=== PATIENT | female | born 1990 | race Caucasian/White ===

== ENCOUNTER 2017-03-20 18:34 | Emergency (ER) | payer OTHER ==
[2017-03-20 18:35] VITALS: BMI 32.5
[2017-03-20 18:44] VITALS: BP 118/83; PULSE 85; TEMP 98.1; O2SAT 99
--- NOTE | 2017-03-20 19:55 | C.PDOC ---
History Of Present Illness The patient, a 26 y/o female, presents to the ED for evaluation of sore throat which began around 8 days ago. Patient also reports generalized body aches, eye pain, and ear pain. Patient states she occasionally takes Tylenol, which provides her with some relief. She denies fever, chills, cough, and sick contacts. Time Seen by Provider: 03/20/17 19:14 Chief Complaint (Nursing): ENT Problem History Per: Patient History/Exam Limitations: no limitations Onset/Duration Of Symptoms: Days (8) Current Symptoms Are (Timing): Still Present Location Of Pain: Throat Sick Contacts (Context): None Associated Symptoms: Sore Throat. denies: Fever, Chills, Cough Ear Symptoms: Bilateral: Ear Pain Additional History Per: Patient Past Medical History Reviewed: Historical Data, Nursing Documentation, Vital Signs Vital Signs: Last Vital Signs Temp 98.1 F 03/20/17 18:40 Pulse 85 03/20/17 18:40 Resp 20 03/20/17 20:08 BP 118/83 03/20/17 18:40 Pulse Ox 99 03/20/17 20:17 - Medical History PMH: Gall Bladder Disease (EPIGASTRIC PAIN AFTER FOOD), HTN (preeclampsia), Migraine Denies: Chronic Kidney Disease Surgical History: - [facility] Procedures EXTRACTION OF POC, LOW CERVICAL, OPEN APPROACH (09/01/16) Family History: States: Unknown Family Hx - Social History Hx Tobacco Use: No Hx Alcohol Use: No Hx Substance Use: No - Immunization History Hx Tetanus Toxoid Vaccination: No Hx Influenza Vaccination: Yes Hx Pneumococcal Vaccination: No Review Of Systems Except As Marked, All Systems Reviewed And Found Negative. Constitutional: Negative for: Fever, Chills Eyes: Positive for: Pain ENT: Positive for: Ear Pain, Throat Pain Respiratory: Negative for: Cough Physical Exam - Physical Exam Appears: Non-toxic, No Acute Distress Skin: Normal Color, Warm, Dry Head: Atraumatic, Normacephalic Eye(s): bilateral: Normal Inspection, PERRL, EOMI, Other (no conjunctival erythema ) Ear(s): Bilateral: Normal Nose: Normal, No Discharge Oral Mucosa: Moist Throat: Normal, No Erythema, No Exudate Neck: Normal ROM, Supple Lymphatic: Adenopathy (mild, submandibular ) Chest: Symmetrical, No Deformity, No Tenderness Cardiovascular: Rhythm Regular, No Murmur Respiratory: Normal Breath Sounds, No Rales, No Rhonchi, No Wheezing Gastrointestinal/Abdominal: Soft, No Tenderness, No Guarding, No Rebound Back: Normal Inspection, No Vertebral Tenderness, No Paraspinal Tenderness Extremity: Normal ROM, Capillary Refill (less than 2 seconds) Neurological/Psych: Oriented x3, Normal Speech, Normal Cognition Gait: Steady ED Course And Treatment O2 Sat by Pulse Oximetry: 99 (on RA) Pulse Ox Interpretation: Normal Medical Decision Making Medical Decision Makin26 y/o female with sore throat, myalgia and eye discomfort x 8 days, no fevers, normal appearing throat, taking tylenol occasionally Disposition Counseled Patient/Family Regarding: Studies Performed, Diagnosis, Need For Followup - Disposition Referrals: [facility] [Outside] [facility] [Outside] Disposition: HOME/ ROUTINE Disposition Time: 19:53 Condition: STABLE Additional Instructions: Vince Tylenol o ibuprofeno para el dolor; Ambos son seguros en la lactancia materna. Gargel con agua salada caliente varias veces al da. Vayan a la Cl prasad Mdica en pocos young. Vuelva a la miguel ángel de emergencias por cualquier s ntoma peor, Take Tylenol or ibuprofen for pain; both are safe in . Gargel with warm salty water several times a day. FOllow up in Medical clinic in a few days. 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 - Scribe Statement The provider has reviewed the documentation as recorded by the Scribe (Magda Mckeon) All medical record entries made by the Scribe were at my direction and personally dictated by me. I have reviewed the chart and agree that the record accurately reflects my personal performance of the history, physical exam, medical decision making, and the department course for this patient. I have also personally directed, reviewed, and agree with the discharge instructions and disposition.
[2017-03-20 20:09] VITALS: RESP 20
== END 2017-03-20 20:08 | disposition home or self-care (01) ==
LOC: C.ER 18:34
DX: J06.9 Acute upper respiratory infection, unspecified (principal)

== ENCOUNTER 2018-12-22 16:56 | Emergency (ER) | payer SELFPAY ==
[2018-12-22 16:56] VITALS: BMI 32.1
[2018-12-22] MEDS ORDERED: Sodium Chloride 0.9% 1,000 ML IV ONE (17:43)
--- NOTE | 2018-12-22 17:44 | C.PDOC ---
History Of Present Illness 28 y/o female presents to the ED complaining of epigastric abdominal pain associated with nausea that began 5 days ago. She reports pain is intermittent and it feels like a squeezing. Otherwise she denies any vomiting, diarrhea, feve r, or chills. Patient admits to some dysuria. She denies that the pain worsens with food intake, though she has had decreased PO intake due to the nausea. Prior surgical hx includes and cholecystectomy. Time Seen by Provider: 12/22/18 17:18 Chief Complaint (Nursing): Abdominal Pain History Per: Patient History/Exam Limitations: no limitations Onset/Duration Of Symptoms: Days (x 5) Current Symptoms Are (Timing): Still Present Location Of Pain/Discomfort: Epigastric, Suprapubic Associated Symptoms: Nausea, Loss Of Appetite Past Medical History Reviewed: Historical Data, Nursing Documentation, Vital Signs Vital Signs: Last Vital Signs Temp 98 F 12/22/18 17:04 Pulse 93 H 12/22/18 17:04 Resp 18 12/22/18 17:04 BP 135/92 H 12/22/18 17:04 Pulse Ox 100 12/22/18 17:04 - Medical History PMH: Gall Bladder Disease (EPIGASTRIC PAIN AFTER FOOD), HTN (preeclampsia), Migraine Denies: Chronic Kidney Disease Surgical History: Cholecystectomy, - [facility] Procedures EXTRACTION OF POC, LOW CERVICAL, OPEN APPROACH (09/01/16) Family History: States: Unknown Family Hx - Social History Hx Tobacco Use: No Hx Alcohol Use: No Hx Substance Use: No - Immunization History Hx Tetanus Toxoid Vaccination: No Hx Influenza Vaccination: Yes Hx Pneumococcal Vaccination: No Review Of Systems Except As Marked, All Systems Reviewed And Found Negative. Constitutional: Negative for: Fever, Chills Eyes: Negative for: Vision Change Cardiovascular: Negative for: Palpitations Respiratory: Negative for: Shortness of Breath Gastrointestinal: Positive for: Nausea, Abdominal Pain. Negative for: Vomiting, Diarrhea, Constipation, Hematochezia Genitourinary: Positive for: Dysuria. Negative for: Vaginal Discharge, Vaginal Bleeding Musculoskeletal: Negative for: Back Pain Neurological: Negative for: Weakness, Numbness Physical Exam - Physical Exam Appears: Non-toxic, No Acute Distress Skin: Normal Color, Warm, No Rash Head: Atraumatic, Normacephalic Eye(s): bilateral: Normal Inspection, PERRL, EOMI Oral Mucosa: Moist Neck: Normal ROM Chest: Symmetrical Cardiovascular: Rhythm Regular, No Murmur Respiratory: Normal Breath Sounds, No Accessory Muscle Use, Other (Speaking in full sentences) Gastrointestinal/Abdominal: Soft, Tenderness (Epigastric and suprapubic tenderness, negative Houston sign, negative McBurneys point tenderness), No Guarding, No Rebound Back: No CVA Tenderness, No Vertebral Tenderness Extremity: Bilateral: Atraumatic, Normal Color And Temperature, Normal ROM Neurological/Psych: Oriented x3, Normal Speech ED Course And Treatment - Laboratory Results Result Diagrams: 12/22/18 17:41 12/22/18 17:41 O2 Sat by Pulse Oximetry: 100 (RA) Pulse Ox Interpretation: Normal Progress Note: Administered NS IV fluids x 1 bolus and 40 mg IV Protonix. Blood work and UA ordered and reviewed. HCG negative. UA shows +leuks, WBC, and few bacteria. Blood work is grossly normal. On re-evaluation patient is resting comfortably, but reports continued pain. Will give 30 mg IV Toradol for pain and discharge home. Plan is to treat patient for UTI and instruct follow up with PMD. Disposition Counseled Patient/Family Regarding: Studies Performed, Diagnosis, Need For Followup, Rx Given - Disposition Referrals: [facility] [Outside] Ramses Schwartz MD [Staff Provider] - Disposition: HOME/ ROUTINE Disposition Time: 18:45 Condition: STABLE Additional Instructions: FOLLOW UP WITH YOUR DOCTOR/CLINIC IN 1-2 DAYS FOLLOW UP WITH [facility]ER WITHIN 1 WEEK AVOID SPICY OR ACIDIC FOODS USE MEDICATIONS DIRECTED RETURN TO EMERGENCY ROOM IF YOUR SYMPTOMS BECOME WORSE SEGUIR CON KHAN MDICO / CLNICA EN 1-2 SOTO SEGUIRSE CON EL GASTROENTERLOGO DENTRO DE 1 SEMANA Evitar los alimentos especiados o cidos. UTILICE MEDICAMENTOS SADI SE DIRIGE VUELVA A LA MACY DE EMERGENCIA SI [place] SNTOMAS SE HACEN PEOR Prescriptions: Nitrofurantoin Macrocrystals [Macrobid] 1 cap PO BID #14 cap Pantoprazole [Protonix EC Tab] 20 mg PO DAILY #30 ect Instructions: Urinary Tract Infection, Adult (DC), Dyspepsia (DC) Forms: [employer] (Botswanan) Print Language: QATARI - Clinical Impression Clinical Impression: Epigastric abdominal pain, UTI (urinary tract infection), Dyspepsia - Scribe Statement The provider has reviewed the documentation as recorded by the Hansa Márquez Provider Attestation: All medical record entries made by the Hansa were at my direction and personally dictated by me. I have reviewed the chart and agree that the record accurately reflects my personal performance of the history, physical exam, [facility] decision making, and the department course for this patient. I have also personally directed, reviewed, and agree with the discharge instructions and disposition.
[2018-12-22 17:48] LABS: BASO % 0.4 % (0.0-2.0); EOS # 0.4 K/uL (0.0-0.7); EOS % 5.6 % (0.0-4.0); LYMPH # 2.1 K/uL (1.0-4.3); LYMPH % 28.4 % (20.0-40.0); MEAN CELL VOLUME 87.2 fL (81.0-99.0); MEAN CORPUSCULAR HEMOGLOBIN 28.8 pg (27.0-31.0); MEAN PLATELET VOLUME 8.6 fL (7.2-11.7); MONO # 0.3 K/uL (0.0-0.8); MONO % 4.6 % (0.0-10.0); NEUT # 4.5 K/uL (1.8-7.0); RBC 4.18 Mil/uL (3.80-5.20); RED CELL DISTRIBUTION WIDTH 14.5 % (11.5-14.5); WHITE BLOOD COUNT 7.4 K/uL (4.8-10.8)
[2018-12-22 17:54] LABS: SQUAMOUS EPITHIAL 2 /hpf (0-5); URINE BACTERIA FEW (<OCC); URINE BILIRUBIN NEGATIVE (NEGATIVE); URINE BLOOD NEGATIVE (NEGATIVE); URINE CLARITY Clear (Clear); URINE COLOR Straw (YELLOW); URINE GLUCOSE (UA) NORMAL (Normal); URINE LEUKOCYTE ESTERASE 1+ Leu/uL (Negative); URINE PROTEIN NEGATIVE (NEGATIVE); URINE UROBILINOGEN NORMAL mg/dL (0.2-1.0)
[2018-12-22] MEDS ORDERED: Sodium Chloride 0.9% 1,000 ML ONE (17:54)
[2018-12-22 17:55] LABS: HCG,QUALITATIVE URINE NEGATIVE (NEGATIVE)
[2018-12-22 18:17] LABS: ALB/GLOB RATIO 1.5 (1.0-2.1); ALBUMIN 4.6 g/dL (3.5-5.0); ALT/SGPT 18 U/L (9-52); AST/SGOT 34 U/L (14-36); BLOOD UREA NITROGEN 10 mg/dL (7-17); CALCIUM 9.3 mg/dl (8.6-10.4); GFR NON-AFRICAN AMERICAN > 60; LIPASE 47 U/L (23-300)
[2018-12-22 19:17] VITALS: BP 129/82; PULSE 74; RESP 17; TEMP 98.6; O2SAT 98
== END 2018-12-22 19:15 | disposition home or self-care (01) ==
LOC: C.ER 16:56
DX: N39.0 Urinary tract infection, site not specified (principal); R10.13 Epigastric pain
CPT/HCPCS: 80053; 81001; 83690; 84703; 85025; 87086; 96361; 96374; 96375; 99285; C9113; J1885; J7030

== ENCOUNTER 2018-12-24 17:25 | Emergency (ER) | payer SELFPAY ==
[2018-12-24 17:26] VITALS: BMI 32.1
[2018-12-24] MEDS ORDERED: Sodium Chloride 0.9% 1,000 ML IV ONE (17:53)
[2018-12-24 18:49] LABS: HCG,QUALITATIVE URINE NEGATIVE (NEGATIVE)
[2018-12-24 18:53] LABS: SQUAMOUS EPITHIAL 2 /hpf (0-5); URINE BACTERIA RARE (<OCC); URINE BILIRUBIN NEGATIVE (NEGATIVE); URINE BLOOD NEGATIVE (NEGATIVE); URINE CLARITY Hazy (Clear); URINE COLOR Yellow (YELLOW); URINE GLUCOSE (UA) NORMAL (Normal); URINE LEUKOCYTE ESTERASE NEG Leu/uL (Negative); URINE PROTEIN NEGATIVE (NEGATIVE); URINE UROBILINOGEN NORMAL mg/dL (0.2-1.0)
[2018-12-24 18:56] LABS: BASO % 0.4 % (0.0-2.0); EOS # 0.6 K/uL (0.0-0.7); EOS % 8.6 % (0.0-4.0); LYMPH % 28.4 % (20.0-40.0); MEAN CORPUSCULAR HEMOGLOBIN 28.6 pg (27.0-31.0); MEAN CORPUSCULAR HGB CONC 32.5 g/dL (33.0-37.0); MEAN PLATELET VOLUME 8.5 fL (7.2-11.7); MONO # 0.4 K/uL (0.0-0.8); MONO % 6.4 % (0.0-10.0); NEUT # 3.9 K/uL (1.8-7.0); NEUT % 56.2 % (50.0-75.0); RBC 4.21 Mil/uL (3.80-5.20); RED CELL DISTRIBUTION WIDTH 14.3 % (11.5-14.5)
[2018-12-24 19:06] LABS: ALB/GLOB RATIO 1.4 (1.0-2.1); ALBUMIN 4.4 g/dL (3.5-5.0); ALT/SGPT 18 U/L (9-52); AST/SGOT 19 U/L (14-36); BLOOD UREA NITROGEN 11 mg/dL (7-17); CALCIUM 9.1 mg/dl (8.6-10.4); GFR NON-AFRICAN AMERICAN > 60; LIPASE 62 U/L (23-300)
--- NOTE | 2018-12-24 19:35 | C.PDOC ---
History Of Present Illness 28 y/o female comes in complaining of colicky abdominal pain. Patient was seen here and evaluated for similar complaint on 12/22/18, and had normal workup and negative test. Patients diet consists of chicken, rice, tortilla, but no vegetables or fruits. Patient denies nausea, vomiting, diarrhea, fever, or chills. Time Seen by Provider: 12/24/18 17:36 Chief Complaint (Nursing): Abdominal Pain History Per: Patient History/Exam Limitations: no limitations Onset/Duration Of Symptoms: Days Current Symptoms Are (Timing): Still Present Past Medical History Reviewed: Historical Data, Nursing Documentation, Vital Signs Vital Signs: Last Vital Signs Temp 98.3 F 12/24/18 17:27 Pulse 91 H 12/24/18 17:27 Resp 16 12/24/18 17:27 BP 131/89 12/24/18 17:27 Pulse Ox 100 12/24/18 17:27 - Medical History PMH: Gall Bladder Disease (EPIGASTRIC PAIN AFTER FOOD), HTN (preeclampsia), Migraine Denies: Chronic Kidney Disease Surgical History: Cholecystectomy, - [facility] Procedures EXTRACTION OF POC, LOW CERVICAL, OPEN APPROACH (09/01/16) Family History: States: No Known Family Hx - Social History Hx Tobacco Use: No Hx Alcohol Use: No Hx Substance Use: No - Immunization History Hx Tetanus Toxoid Vaccination: No Hx Influenza Vaccination: Yes Hx Pneumococcal Vaccination: No Review Of Systems Except As Marked, All Systems Reviewed And Found Negative. Constitutional: Negative for: Fever, Chills Cardiovascular: Negative for: Chest Pain Respiratory: Negative for: Shortness of Breath Gastrointestinal: Positive for: Abdominal Pain. Negative for: Nausea, Vomiting, Diarrhea Genitourinary: Negative for: Dysuria, Hematuria, Vaginal Discharge, Vaginal Bleeding Physical Exam - Physical Exam Appears: Non-toxic, No Acute Distress, Other ( female) Skin: Warm, Dry Head: Atraumatic, Normacephalic Eye(s): bilateral: Normal Inspection Oral Mucosa: Moist Neck: Supple Cardiovascular: Rhythm Regular, No Murmur Respiratory: Normal Breath Sounds, No Rales, No Rhonchi, No Wheezing Gastrointestinal/Abdominal: Other (central abdomen obesity, tympanic in epigastrium, dull in bilateral flanks) Extremity: No Pedal Edema, No Swelling Extremity: Bilateral: Atraumatic, Normal Color And Temperature, Normal ROM Neurological/Psych: Oriented x3, Normal Speech ED Course And Treatment - Laboratory Results Result Diagrams: 12/24/18 18:45 12/24/18 18:45 Lab Results: Total Bilirubin 0.4 mg/dL (0.2-1.3) 12/24/18 18:45 AST 19 U/L (14-36) 12/24/18 18:45 ALT 18 U/L (9-52) 12/24/18 18:45 Alkaline Phosphatase 69 U/L (38-126) 12/24/18 18:45 Total Protein 7.5 g/dL (6.3-8.3) 12/24/18 18:45 Albumin 4.4 g/dL (3.5-5.0) 12/24/18 18:45 Globulin 3.1 gm/dL (2.2-3.9) 12/24/18 18:45 Albumin/Globulin Ratio 1.4 (1.0-2.1) 12/24/18 18:45 Lipase 62 U/L (23-300) 12/24/18 18:45 Urine Color Yellow (YELLOW) 12/24/18 18:45 Urine Clarity Hazy (Clear) 12/24/18 18:45 Urine pH 5.0 (5.0-8.0) 12/24/18 18:45 Ur Specific [place] 1.018 (1.003-1.030) 12/24/18 18:45 Urine Protein Negative mg/dL (NEGATIVE) 12/24/18 18:45 Urine Glucose (UA) Normal mg/dL (Normal) 12/24/18 18:45 Urine Ketones Negative mg/dL (NEGATIVE) 12/24/18 18:45 Urine Blood Negative (NEGATIVE) 12/24/18 18:45 Urine Nitrate Negative (NEGATIVE) 12/24/18 18:45 Urine Bilirubin Negative (NEGATIVE) 12/24/18 18:45 Urine Urobilinogen Normal mg/dL (0.2-1.0) 12/24/18 18:45 Ur Leukocyte Esterase Neg Carly/uL (Negative) 12/24/18 18:45 Urine WBC (Auto) 1 /hpf (0-5) 12/24/18 18:45 Urine RBC (Auto) 1 /hpf (0-3) 12/24/18 18:45 Ur Squamous Epith Cells 2 /hpf (0-5) 12/24/18 18:45 Urine Bacteria Rare (<OCC) 12/24/18 18:45 Urine HCG, Qual Negative (NEGATIVE) 12/24/18 18:45 Urine HCG, Qual Negative (NEGATIVE) 12/24/18 18:45 Lab Interpretation: Normal Urine POC: Negative O2 Sat by Pulse Oximetry: 100 (RA) Pulse Ox Interpretation: Normal - Other Rad abd x 2 X-Ray: Interpreted by Me (+FOS) Medical Decision Making Medical Decision Making: Plan: --Labs --Obstructive series --IV fluids 1L --Toradol 30 mg IVP --UA acute on chronic constipation diet, exercise, water intake educated. Disposition Doctor Will See Patient In The: Office Counseled Patient/Family Regarding: Studies Performed, Diagnosis - Disposition Referrals: [facility] [Outside] [facility] [Outside] [facility] [Outside] [facility] [Outside] Disposition: HOME/ ROUTINE Disposition Time: 20:00 Condition: GOOD Additional Instructions: danielle purgante ahora y re-evalua ross molestia del abdomen depues de usar el norman 2-3 veces Cambios de dieta/ejercisio danielle mas agua 7 verduras y frutas crudas diarios Camina "power walk" 45 min x 5 days/week se aumenta la motilidad de los intestinos. Sigue con la [facility] necessario Instructions: Constipation in Adults Forms: [employer] (Greenlandic) Print Language: CITIZEN OF [place] - Clinical Impression Clinical Impression: Abdominal pain, colicky - Scribe Statement The provider has reviewed the documentation as recorded by the Hansa Baker Provider Attestation: All medical record entries made by the Scribe were at my direction and person ally dictated by me. I have reviewed the chart and agree that the record accurately reflects my personal performance of the history, physical exam, medical decision making, and the department course for this patient. I have also personally directed, reviewed, and agree with the discharge instructions and disposition.
--- NOTE | 2018-12-24 19:35 | C.PDOC ---
Time Seen by Provider: 12/24/18 17:36 Chief Complaint (Nursing): Abdominal Pain Past Medical History Vital Signs: Last Vital Signs Temp 98.3 F 12/24/18 17:27 Pulse 91 H 12/24/18 17:27 Resp 16 12/24/18 17:27 BP 131/89 12/24/18 17:27 Pulse Ox 100 12/24/18 17:27 - Medical History PMH: Gall Bladder Disease (EPIGASTRIC PAIN AFTER FOOD), HTN (preeclampsia), Migraine Denies: Chronic Kidney Disease Surgical History: Cholecystectomy, - [facility] Procedures EXTRACTION OF POC, LOW CERVICAL, OPEN APPROACH (09/01/16) Family History: States: Unknown Family Hx - Social History Hx Tobacco Use: No Hx Alcohol Use: No Hx Substance Use: No - Immunization History Hx Tetanus Toxoid Vaccination: No Hx Influenza Vaccination: Yes Hx Pneumococcal Vaccination: No ED Course And Treatment - Laboratory Results Result Diagrams: 12/24/18 18:45 12/24/18 18:45 Lab Results: Total Bilirubin 0.4 mg/dL (0.2-1.3) 12/24/18 18:45 AST 19 U/L (14-36) 12/24/18 18:45 ALT 18 U/L (9-52) 12/24/18 18:45 Alkaline Phosphatase 69 U/L (38-126) 12/24/18 18:45 Total Protein 7.5 g/dL (6.3-8.3) 12/24/18 18:45 Albumin 4.4 g/dL (3.5-5.0) 12/24/18 18:45 Globulin 3.1 gm/dL (2.2-3.9) 12/24/18 18:45 Albumin/Globulin Ratio 1.4 (1.0-2.1) 12/24/18 18:45 Lipase 62 U/L (23-300) 12/24/18 18:45 Urine Color Yellow (YELLOW) 12/24/18 18:45 Urine Clarity Hazy (Clear) 12/24/18 18:45 Urine pH 5.0 (5.0-8.0) 12/24/18 18:45 Ur Specific [place] 1.018 (1.003-1.030) 12/24/18 18:45 Urine Protein Negative mg/dL (NEGATIVE) 12/24/18 18:45 Urine Glucose (UA) Normal mg/dL (Normal) 12/24/18 18:45 Urine Ketones Negative mg/dL (NEGATIVE) 12/24/18 18:45 Urine Blood Negative (NEGATIVE) 12/24/18 18:45 Urine Nitrate Negative (NEGATIVE) 12/24/18 18:45 Urine Bilirubin Negative (NEGATIVE) 12/24/18 18:45 Urine Urobilinogen Normal mg/dL (0.2-1.0) 12/24/18 18:45 Ur Leukocyte Esterase Neg Carly/uL (Negative) 12/24/18 18:45 Urine WBC (Auto) 1 /hpf (0-5) 12/24/18 18:45 Urine RBC (Auto) 1 /hpf (0-3) 12/24/18 18:45 Ur Squamous Epith Cells 2 /hpf (0-5) 12/24/18 18:45 Urine Bacteria Rare (<OCC) 12/24/18 18:45 Urine HCG, Qual Negative (NEGATIVE) 12/24/18 18:45 Urine HCG, Qual Negative (NEGATIVE) 12/24/18 18:45 Lab Interpretation: Normal Urine POC: Negative O2 Sat by Pulse Oximetry: 100 Pulse Ox Interpretation: Normal - Radiology CXR: Interpreted by Me CXR Interpretation: Yes: No Acute Disease - Other Rad abd x 2 X-Ray: Interpreted by Ms (+FOS) Medical Decision Making Medical Decision Making: acute on chronic constipation diet, exercise, water intake educated. Disposition Doctor Will See Patient In The: Office Counseled Patient/Family Regarding: Studies Performed, Diagnosis - Disposition Disposition: HOME/ ROUTINE Disposition Time: 19:34 Condition: GOOD Forms: [employer] (Croatian) - Clinical Impression Clinical Impression: Abdominal pain, colicky
[2018-12-24] MEDS ORDERED: Magnesium Citrate Oral SOL (300 ml) PO ONE (19:44)
[2018-12-24 20:07] VITALS: BP 126/82; PULSE 88; RESP 20; TEMP 98.7
--- NOTE | 2018-12-25 14:39 | RAD ---
Date of service: 12/24/2018 PROCEDURE: Radiographs of the chest and abdomen (obstructive series) HISTORY: abd pain, ? constip COMPARISON: No prior. TECHNIQUE: AP radiograph of the chest, with upright and supine radiographs of the abdomen. FINDINGS: CHEST: Lungs: Clear. Cardiovascular: Normal size heart. No pulmonary vascular congestion. No aortic atherosclerotic calcification present Pleura: No pleural fluid. No pneumothorax. Other findings: None. ABDOMEN AND PELVIS: Bowel: Mild constipation, otherwise unremarkable bowel gas pattern. No evidence of mechanical obstruction. Free air: None. Bones: Unremarkable. Other findings: None. IMPRESSION: Mild constipation, otherwise unremarkable radiographs of chest and abdomen. No evidence of mechanical bowel obstruction.
[2018-12-26 00:24] VITALS: O2SAT 100
== END 2018-12-24 19:45 | disposition home or self-care (01) ==
LOC: C.ER 17:25
DX: R10.84 Generalized abdominal pain (principal); I10 Essential (primary) hypertension
CPT/HCPCS: 74022; 80053; 81001; 83690; 84703; 85025; 96361; 96374; 99284; J1885; J7030

== ENCOUNTER 2019-03-09 21:02 | Emergency (ER) | payer SELFPAY ==
[2019-03-09 21:02] VITALS: BMI 31.5
[2019-03-09 21:21] VITALS: RESP 20; O2SAT 100
[2019-03-09] MEDS ORDERED: Sodium Chloride 0.9% 1,000 ML IV ONE (21:53)
[2019-03-09] MEDS ORDERED: Sodium Chloride 0.9% 1,000 ML ONE (22:08)
[2019-03-09 22:21] LABS: BASO # 0.1 K/uL (0.0-0.2); BASO % 0.6 % (0.0-2.0); EOS # 0.1 K/uL (0.0-0.7); EOS % 1.2 % (0.0-4.0); HEMOGLOBIN 11.6 g/dL (11.0-16.0); LYMPH # 2.5 K/uL (1.0-4.3); LYMPH % 27.3 % (20.0-40.0); MEAN CELL VOLUME 88.4 fL (81.0-99.0); MEAN CORPUSCULAR HEMOGLOBIN 29.5 pg (27.0-31.0); MEAN CORPUSCULAR HGB CONC 33.3 g/dL (33.0-37.0); MEAN PLATELET VOLUME 8.4 fL (7.2-11.7); MONO # 0.7 K/uL (0.0-0.8); MONO % 7.3 % (0.0-10.0); NEUT # 5.7 K/uL (1.8-7.0); NEUT % 63.6 % (50.0-75.0); NRBC % 0.1 % (0.0-2.0); RBC 3.93 Mil/uL (3.80-5.20); RED CELL DISTRIBUTION WIDTH 14.9 % (11.5-14.5)
[2019-03-09 22:22] LABS: HCG,QUALITATIVE URINE NEGATIVE (NEGATIVE)
[2019-03-09 22:24] LABS: URINE BACTERIA FEW (<OCC); URINE BILIRUBIN NEGATIVE (NEGATIVE); URINE BLOOD 2+ (NEGATIVE); URINE CLARITY Hazy (Clear); URINE COLOR Straw (YELLOW); URINE GLUCOSE (UA) NORMAL (Normal); URINE LEUKOCYTE ESTERASE 3+ Leu/uL (Negative); URINE PROTEIN NEGATIVE (NEGATIVE); URINE UROBILINOGEN NORMAL mg/dL (0.2-1.0)
[2019-03-09 22:30] LABS: ALB/GLOB RATIO 1.3 (1.0-2.1); ALBUMIN 4.5 g/dL (3.5-5.0); ALT/SGPT 30 U/L (9-52); AST/SGOT 24 U/L (14-36); BLOOD UREA NITROGEN 7 mg/dL (7-17); CALCIUM 9.5 mg/dl (8.6-10.4); GFR NON-AFRICAN AMERICAN > 60; LIPASE 82 U/L (23-300)
--- NOTE | 2019-03-09 23:05 | C.PDOC ---
History Of Present Illness 28 year old female presents to the ED c/o 1 day history of urinary burning, sensation of incomplete emptying, urinary frequency. Patient has frequent UTI symptoms. chronic lower abdominal discomfort described as colic. Patient has mu ltiple prior evaluation for same, poor compliance with diet, exercise and PO fluids. Patient denies fever, chills, nausea, vomit, diarrhea, back pain. Time Seen by Provider: 03/09/19 21:36 Chief Complaint (Nursing): Female Genitourinary History Per: Patient History/Exam Limitations: no limitations Onset/Duration Of Symptoms: Days (1) Current Symptoms Are (Timing): Still Present Location Of Pain/Discomfort: Diffuse Quality Of Discomfort: "Pain" Associated Symptoms: Urinary Symptoms. denies: Nausea, Vomiting, Diarrhea Recent travel outside of the [place]: No Additional History Per: Patient Abnormal Vaginal Bleeding: No Past Medical History Reviewed: Historical Data, Nursing Documentation, Vital Signs Vital Signs: Last Vital Signs Temp 98.5 F 03/09/19 21:17 Pulse 106 H 03/09/19 21:17 Resp 20 03/09/19 21:17 BP 126/85 03/09/19 21:17 Pulse Ox 100 03/09/19 21:17 Primary Care Provider: FAMILY PROVIDER,NO - Medical History PMH: Gall Bladder Disease (EPIGASTRIC PAIN AFTER FOOD), HTN (preeclampsia), Yrn chilo Denies: Chronic Kidney Disease Surgical History: Cholecystectomy, - [facility] Procedures EXTRACTION OF POC, LOW CERVICAL, OPEN APPROACH (09/01/16) Family History: States: Unknown Family Hx - Social History Hx Tobacco Use: No Hx Alcohol Use: No Hx Substance Use: No - Immunization History Hx Tetanus Toxoid Vaccination: No Hx Influenza Vaccination: Yes Hx Pneumococcal Vaccination: No Review Of Systems Constitutional: Negative for: Fever, Chills Cardiovascular: Negative for: Chest Pain Respiratory: Negative for: Shortness of Breath Gastrointestinal: Positive for: Abdominal Pain. Negative for: Nausea, Vomiting Genitourinary: Positive for: Frequency. Negative for: Dysuria, Vaginal Discharge, Vaginal Bleeding Skin: Negative for: Rash Physical Exam - Physical Exam Appears: Non-toxic, No Acute Distress, Other (appears older than stated age) Skin: Normal Color, Warm, Dry Head: Atraumatic, Normacephalic Eye(s): bilateral: Normal Inspection Oral Mucosa: Moist Neck: Normal ROM, Supple Chest: Symmetrical Cardiovascular: Rhythm Regular Respiratory: Normal Breath Sounds, No Rales, No Rhonchi, No Wheezing Gastrointestinal/Abdominal: Soft, Tenderness (minimal lower abdominal), No Guarding, No Rebound, Other (obese) Back: No CVA Tenderness Extremity: Normal ROM, No Tenderness, No Swelling Neurological/Psych: Oriented x3, Normal Speech, Other (bizarre, anxious) Gait: Steady ED Course And Treatment - Laboratory Results Result Diagrams: 03/09/19 22:12 03/09/19 22:12 Lab Results: Total Bilirubin 0.4 mg/dL (0.2-1.3) 03/09/19 22:12 AST 24 U/L (14-36) 03/09/19 22:12 ALT 30 U/L (9-52) 03/09/19 22:12 Alkaline Phosphatase 62 U/L (38-126) 03/09/19 22:12 Total Protein 8.0 g/dL (6.3-8.3) 03/09/19 22:12 Albumin 4.5 g/dL (3.5-5.0) 03/09/19 22:12 Globulin 3.5 gm/dL (2.2-3.9) 03/09/19 22:12 Albumin/Globulin Ratio 1.3 (1.0-2.1) 03/09/19 22:12 Lipase 82 U/L (23-300) 03/09/19 22:12 Urine Color Straw (YELLOW) 03/09/19 22:12 Urine Clarity Hazy (Clear) 03/09/19 22:12 Urine pH 7.0 (5.0-8.0) 03/09/19 22:12 Ur Specific [place] 1.003 (1.003-1.030) 03/09/19 22:12 Urine Protein Negative mg/dL (NEGATIVE) 03/09/19 22:12 Urine Glucose (UA) Normal mg/dL (Normal) 03/09/19 22:12 Urine Ketones Negative mg/dL (NEGATIVE) 03/09/19 22:12 Urine Blood 2+ (NEGATIVE) H 03/09/19 22:12 Urine Nitrate Negative (NEGATIVE) 03/09/19 22:12 Urine Bilirubin Negative (NEGATIVE) 03/09/19 22:12 Urine Urobilinogen Normal mg/dL (0.2-1.0) 03/09/19 22:12 Ur Leukocyte Esterase 3+ Carly/uL (Negative) H 03/09/19 22:12 Urine WBC (Auto) 74 /hpf (0-5) H 03/09/19 22:12 Urine RBC (Auto) 12 /hpf (0-3) H 03/09/19 22:12 Urine Bacteria Few (<OCC) H 03/09/19 22:12 Urine HCG, Qual Negative (NEGATIVE) 03/09/19 22:12 Urine HCG, Qual Negative (NEGATIVE) 03/09/19 22:12 Lab Interpretation: Abnormal (ua 74 WBC's) Urine POC: Negative O2 Sat by Pulse Oximetry: 100 (ON RA) Pulse Ox Interpretation: Normal - Radiology CXR: Interpreted by Me CXR Interpretation: Yes: No Acute Disease - Other Rad abd x 2 X-Ray: Interpreted by Me (+FOS) Reevaluation Time: 23:04 (') Reassessment Condition: Improved Medical Decision Making Medical Decision Making: acute on chronic constipation Low susp of intra-abd infection laxative minor UTI LOW susp of Pyelo empriic abx x 5 d no preg Many ED and inpt evals w neg findings since 2013 Pt claims to be recently inpt @ [facility] for 2 weeks for H.Pylori and ? stomach ulcers but no documentation to support Unclear why pt goes back and forth between hospital systems and non-compliant with chronic constipation regimen Consider Malingering/Munchausen's Disposition Doctor Will See Patient In The: Office Counseled Patient/Family Regarding: Studies Performed, Diagnosis - Disposition Referrals: Family Practice Nurse Practitioner Service [Outside] [facility] [Outside] [facility] [Outside] [place] [facility] [Outside] Disposition: HOME/ ROUTINE Disposition Time: 23:05 Condition: GOOD Additional Instructions: Estrenemiento: danielle purgante ahora re-evalua ross molestia del abdomen despues de usar el norman 2-3 veces Regressa la miguel ángel de emergencias [place] edwardo necessario Cambios de dieta y ejercisio Purgantes occasionalmente edwardo necessario UTI- infeccion' del orina 71 WBC's (globulos blancos) Danielle Macrobid (antibiotico) 100 mg dos veces al maya para cumplir 5 flynn Sigue con la [facility] Familiar edwardo necessario Prescriptions: Nitrofurantoin Macrocrystals [Macrobid] 100 mg PO BID #9 cap Instructions: Constipation, Adult (DC), Acute Cystitis (DC) Forms: [employer] (Pakistani) Print Language: IRAQI - Clinical Impression Clinical Impression: Abdominal pain, colicky, Dysuria - Scribe Statement The provider has reviewed the documentation as recorded by the Scribe Arnold Cook All medical record entries made by the Scribe were at my direction and personally dictated by me. I have reviewed the chart and agree that the record accurately reflects my personal performance of the history, physical exam, medical decision making, and the department course for this patient. I have also personally directed, reviewed, and agree with the discharge instructions and disposition.
[2019-03-09 23:13] VITALS: BP 115/75; PULSE 97; TEMP 98.1
--- NOTE | 2019-03-10 07:12 | RAD ---
Date of service: 03/09/2019 PROCEDURE: Radiographs of the chest and abdomen (obstructive series) HISTORY: abd pain COMPARISON: Obstructive series 12/24/2018 TECHNIQUE: AP radiograph of the chest, with upright and supine radiographs of the abdomen. 3 views obtained. FINDINGS: CHEST: Lungs: No focal consolidation is seen. Cardiovascular: Heart size within normal limits. No aortic atherosclerotic calcification present Pleura: No pleural effusion is identified.. Other findings: Visualized osseous structures are unremarkable. ABDOMEN AND PELVIS: Bowel: Bowel gas pattern is nonspecific. There is scattered air in the small and large bowel. Moderate to large volume of stool noted throughout the colon. No air-fluid levels are identified to suggest bowel obstruction. Free air: No free air seen under the diaphragm. Bones: No acute fracture identified. Other findings: Surgical clips noted right upper quadrant, likely from prior cholecystectomy. IMPRESSION: Moderate to large volume of stool throughout the colon.
== END 2019-03-09 23:37 | disposition home or self-care (01) ==
LOC: C.ER 21:02
DX: R30.0 Dysuria (principal); R10.84 Generalized abdominal pain; I10 Essential (primary) hypertension
CPT/HCPCS: 74022; 80053; 81001; 83690; 84703; 85025; 87086; 96374; 99284; J1885; J7030